=== PATIENT | male | born 1985 | race African-American/Black ===

== ENCOUNTER → 2024-09-26 | Emergency (ER) | payer SELFPAY ==
[~2024-09-26] VITALS: Ht 182.9 cm; Wt 90.7 kg
[~2024-09-26] MED LIST: IBUPROFEN 400 MG TABLET ONE
[2024-09-26] MEDS: IBUPROFEN 400 MG TABLET PO ONE (23:57)
[2024-09-27 00:04] VITALS: BP 145/89; TEMP 98; O2SAT 98
== END | disposition home or self-care (01) ==
LOC: ER 21:27
DX: S97.81XA Crushing injury of right foot, initial encounter (principal); S90.31XA Contusion of right foot, initial encounter; W23.0XXA Caught, crushed, jammed, or pinched between moving objects, initial encounter; Z59.00 Homelessness unspecified; Z60.2 Problems related to living alone; Y93.89 Activity, other specified; Y92.89 Other specified places as the place of occurrence of the external cause; Y99.8 Other external cause status
CPT/HCPCS: 73630-TC

== ENCOUNTER 2024-10-02 07:47 | Emergency (ER) | payer MEDICAID ==
[~2024-10-02] VITALS: Ht 182.9 cm; Wt 79.4 kg
[2024-10-02] MEDS ORDERED: DOXY100T2 PO (08:17)
[2024-10-02] MEDS ORDERED: ERYT3.5O9 EACHEYE (08:17)
[2024-10-02] MEDS ORDERED: CEPH-570 PO (08:17)
[2024-10-02 08:34] VITALS: BP 142/80; TEMP 98.6; O2SAT 100
== END 2024-10-02 08:35 | disposition home or self-care (01) ==
LOC: ER 07:53
DX: L02.421 Furuncle of right axilla (principal); H10.9 Unspecified conjunctivitis; Z60.2 Problems related to living alone

== ENCOUNTER 2024-12-11 08:47 | Emergency (ER) | payer MEDICAID, OTHER ==
[~2024-12-11] VITALS: Ht 185.4 cm; Wt 86.2 kg
[~2024-12-11 08:47] MED LIST changes: +CEPH-570 PO; +DOXY100T2 PO; +ERYT3.5O9 EACHEYE; -IBUPROFEN 400 MG TABLET ONE
[2024-12-11 09:01] VITALS: BP 158/74; TEMP 98.3; O2SAT 97
[2024-12-11] MEDS ORDERED: DOXY100T2 PO (09:22)
[2024-12-11] MEDS ORDERED: DOXYCYCLINE HYCLATE (100 MG) 100 MG TABLET PO ONE (09:30)
== END 2024-12-11 09:33 | disposition home or self-care (01) ==
LOC: ER 09:00
DX: R21 Rash and other nonspecific skin eruption (principal); L70.8 Other acne; Z60.2 Problems related to living alone

== ENCOUNTER 2024-12-26 17:46 | Emergency (ER) | payer OTHER ==
[~2024-12-26] VITALS: Ht 182.9 cm; Wt 86.2 kg
[2024-12-26 18:29] VITALS: BP 151/71; TEMP 98.5
[2024-12-26] MEDS ORDERED: DOXY100T2 PO (18:49)
[2024-12-26] MEDS ORDERED: CLIN50GE7 TP (18:49)
[2024-12-26 18:57] VITALS: O2SAT 100
== END 2024-12-26 18:58 | disposition home or self-care (01) ==
LOC: ER 17:49
DX: L70.0 Acne vulgaris (principal); Z60.2 Problems related to living alone

== ENCOUNTER 2025-02-06 17:31 | Emergency (ER) | payer OTHER ==
[~2025-02-06] VITALS: Ht 182.9 cm; Wt 81.6 kg
[~2025-02-06 17:31] MED LIST changes: +CLIN50GE7 TP
[2025-02-06 18:03] VITALS: BP 160/93; TEMP 98.3; O2SAT 97
== END 2025-02-06 18:27 | disposition home or self-care (01) ==
LOC: ER 17:35
DX: L70.0 Acne vulgaris (principal); Z79.899 Other long term (current) drug therapy

== ENCOUNTER 2025-06-25 15:12 | Emergency (ER) | payer OTHER ==
[~2025-06-25] VITALS: Ht 182.9 cm; Wt 86.2 kg
[2025-06-25] MEDS ORDERED: CEPH-570 PO (16:09)
[2025-06-25 16:36] VITALS: BP 118/61; TEMP 97.8; O2SAT 98
== END 2025-06-25 16:39 | disposition home or self-care (01) ==
LOC: ER 15:20
DX: L03.221 Cellulitis of neck (principal); Z60.2 Problems related to living alone

== ENCOUNTER 2025-07-19 21:05 | Emergency (ER) | payer OTHER ==
[~2025-07-19] VITALS: Ht 180.3 cm; Wt 74.8 kg
[2025-07-19 21:13] VITALS: BP 135/84; TEMP 98.2
[2025-07-19] MEDS ORDERED: CEPH750C9 PO (21:28)
[2025-07-19] MEDS ORDERED: CLIN50GE7 TP (21:28)
[2025-07-19 21:43] VITALS: O2SAT 99
[2025-07-19 23:45] LABS: APPEARANCE,URINE CLEAR (CLEAR); BLOOD, URINE NEGATIVE Ery/uL (NEGATIVE); LEUKOCYTE ESTERASE ,URINE NEGATIVE (NEGATIVE); NITRITE, URINE NEGATIVE (NEGATIVE); UGLUCOSE NEGATIVE (NEGATIVE)
[2025-07-19 23:56] LABS: ADD URINE CULTURE NO; SQUAMOUS EPITHELIAL CELL,UR Few /HPF (None Seen)
== END 2025-07-19 21:44 | disposition home or self-care (01) ==
LOC: ER 21:10
DX: L73.9 Follicular disorder, unspecified (principal); R35.0 Frequency of micturition; Z60.2 Problems related to living alone; Z79.899 Other long term (current) drug therapy
CPT/HCPCS: 81001

== ENCOUNTER 2025-09-14 10:00 | Emergency (ER) | payer OTHER ==
[~2025-09-14] VITALS: Ht 175.3 cm; Wt 86.2 kg
[~2025-09-14 10:00] MED LIST changes: +CEPH750C9 PO
[2025-09-14] MEDS ORDERED: VALA10002 PO (10:59)
[2025-09-14] MEDS: VALACYCLOVIR HCL 500 MG TABLET PO ONE (11:28)
[2025-09-14 12:01] VITALS: BP 126/77; TEMP 98.8; O2SAT 99
[2025-09-16 05:07] LABS: *HSV 1 DNA PCR Negative (Negative); *HSV 2 DNA PCR Negative (Negative)
== END 2025-09-14 12:01 | disposition home or self-care (01) ==
LOC: ER 10:17
DX: K13.79 Other lesions of oral mucosa (principal); Z97.0 Presence of artificial eye
CPT/HCPCS: 36415